=== PATIENT | male | born 1935 | race African-American/Black ===

== ENCOUNTER 2022-08-25 06:09 | Inpatient (IN) | payer MEDICARE ==
[~2022-08-25] VITALS: Ht 180.3 cm; Wt 79.8 kg
[2022-08-25 06:59] LABS: BASOPHILS % 0.9 % (0.0-2.0); HEMATOCRIT. 39.5 % (42.0-52.0); HEMOGLOBIN. 13.5 g/dL (14.0-18.0); LYMPHOCYTES % 34.9 % (20.0-50.0); MEAN CORPUSCULAR HEMOGLOBIN 29.1 pg (28.0-32.0); MEAN CORPUSCULAR VOLUME 85.1 fL (80.0-94.0); MEAN PLATELET VOLUME 8.6 fl (7.4-10.4); MONOCYTES % 7.7 % (2.0-8.0); NEUTROPHILS % 54.5 % (40.0-76.0); PLATELET 227 x1000/uL (130-400); RED BLOOD CELL COUNT 4.64 mill/uL (4.7-6.1); RED CELL DISTRIBUTION WIDTH 14.1 % (11.6-14.6)
[2022-08-25 07:08] LABS: CHLORIDE 104 mEq/L (98-107)
[2022-08-25 07:21] LABS: INR 1.1; PROTHROMBIN TIME 11.9 sec (9.6-11.0)
[2022-08-25] MEDS ORDERED: POTASSIUM CHLORIDE 20MEQ TABLET SR PO ONE (08:00)
[2022-08-25] MEDS ORDERED: ASPIRIN 325MG EC TABLET PO ONE (09:30)
[2022-08-25] MEDS ORDERED: POTASSIUM CHLORIDE 20MEQ TABLET SR PO NR (10:15)
[2022-08-25] MEDS ORDERED: ASPIRIN 325MG EC TABLET PO NR (10:15)
[2022-08-25] MEDS ORDERED: ONDANSETRON HCL 4MG/2ML INJ IV PRN (10:30)
[2022-08-25] MEDS ORDERED: ACETAMINOPHEN 325MG TABLET PO PRN (10:30)
[2022-08-25] MEDS: ENOXAPARIN 40MG/0.4ML SYR SUBCUT SCH (11:50)
[2022-08-25 20:00] VITALS: BP 148/81
[2022-08-25] MEDS ORDERED: ATORVASTATIN CALCIUM 40MG TABLET PO SCH (21:00)
[2022-08-26] VITALS: BP 154/84
[2022-08-26 04:00] VITALS: BP 159/82
[2022-08-26 07:30] LABS: CHLORIDE 106 mEq/L (98-107)
[2022-08-26 07:31] LABS: BASOPHILS % 0.7 % (0.0-2.0); EOSINOPHILS % 2.5 % (0.0-5.0); HEMATOCRIT. 38.3 % (42.0-52.0); HEMOGLOBIN. 13.1 g/dL (14.0-18.0); LYMPHOCYTES % 39.7 % (20.0-50.0); MEAN CORPUSCULAR HEMOGLOBIN 29.3 pg (28.0-32.0); MEAN CORPUSCULAR VOLUME 85.6 fL (80.0-94.0); MEAN PLATELET VOLUME 8.8 fl (7.4-10.4); MONOCYTES % 9.3 % (2.0-8.0); NEUTROPHILS % 47.8 % (40.0-76.0); PLATELET 220 x1000/uL (130-400); RED BLOOD CELL COUNT 4.47 mill/uL (4.7-6.1); RED CELL DISTRIBUTION WIDTH 14.3 % (11.6-14.6)
[2022-08-26 08:00] VITALS: BP 151/86
[2022-08-26] MEDS ORDERED: POTASSIUM CHLORIDE 20MEQ TABLET SR PO NR (08:15)
[2022-08-26] MEDS ORDERED: ASPIRIN 81MG TABLET PO SCH (09:00)
[2022-08-26] MEDS: ENOXAPARIN 40MG/0.4ML SYR SUBCUT SCH (11:18)
[2022-08-26 12:00] VITALS: BP 178/90
[2022-08-26] MEDS ORDERED: AMLO10TA80 MT (12:51)
[2022-08-26] MEDS ORDERED: CYAN100086 PO (12:54)
[2022-08-26] MEDS ORDERED: METO25TA6 MT (12:54)
[2022-08-26] MEDS ORDERED: ATOR10TA69 MT (12:54)
[2022-08-26] MEDS ORDERED: ASPI-1497 PO (12:54)
[2022-08-26 15:44] VITALS: BP 152/90
[2022-08-26 16:00] VITALS: BP 152/91
== END 2022-08-26 16:20 | disposition home or self-care (01) | DRG 641 ==
LOC: ER 06:09 → EDBEDREQ 08:23 → EDBEDREQSVC 08:23 → 7WST 09:29 → EDBEDREQ 09:33 → EDBEDREQTM 09:33
PROVIDERS: ADMIT Internal Medicine Pulmonary Disease; ATTEND Internal Medicine Pulmonary Disease
DX: E87.6 Hypokalemia (principal); R53.1 Weakness; E11.9 Type 2 diabetes mellitus without complications; I10 Essential (primary) hypertension; Z20.822 Contact with and (suspected) exposure to COVID-19; R47.81 Slurred speech; Z88.0 Allergy status to penicillin
CPT/HCPCS: 36415; 70551; 71045; 80048; 80053; 83605; 83735; 84145; 84484; 85025; 87426; 87804; 93005; 97162; 97530; 99285; C9803; J1650